=== PATIENT | male | born 1965 | race Caucasian/White ===

== ENCOUNTER 2023-10-17 02:00 | Emergency (ER) | payer BC ==
[2023-10-17] MEDS ORDERED: Boostrix 0.5 ML (Tdap) VIAL (>/=7 yrs of age) ONE (02:25)
[2023-10-17] MEDS ORDERED: Bacitracin 1 PK ONE (02:58)
== END 2023-10-17 03:16 | disposition home or self-care (01) ==
LOC: MADERS 02:00
DX: S01.81XA Laceration without foreign body of other part of head, initial encounter (principal); S01.411A Laceration without foreign body of right cheek and temporomandibular area, initial encounter; E78.5 Hyperlipidemia, unspecified; Z23 Encounter for immunization; Z79.899 Other long term (current) drug therapy; W18.30XA Fall on same level, unspecified, initial encounter
CPT/HCPCS: 12014; 90471; 90715